=== PATIENT | male | born 1975 | race Caucasian/White ===

== ENCOUNTER 2019-11-18 09:40 | Emergency (ER) | payer BC ==
[2019-11-18] MEDS ORDERED: Ketorolac 30 MG/ML SDV IVPUSH ONE (10:09)
[2019-11-18] MEDS ORDERED: Sodium Chloride 0.9% 1,000 ML IV ONE (10:09)
[2019-11-18 10:29] LABS: ANION GAP 11.8 mEq/L (7-13); CHLORIDE,CL 105 mmol/L (98-107); SODIUM,NA 141 mmol/L (136-145)
--- NOTE | 2019-11-18 11:07 | CT ---
PROCEDURE INFORMATION: Exam: CT Abdomen And Pelvis Without Contrast Exam date and time: 11/18/2019 10:27 AM Age: 44 years old Clinical indication: Pain; Other: Left flank; Additional info: Left flank pain TECHNIQUE: Imaging protocol: Computed tomography of the abdomen and pelvis without contrast. Radiation optimization: All CT scans at this facility use at least one of these dose optimization techniques: automated exposure control; mA and/or kV adjustment per patient size (includes targeted exams where dose is matched to clinical indication); or iterative reconstruction. COMPARISON: No relevant prior studies available. FINDINGS: Limitations: Respiratory motion limits the examination. Lungs: There is minimal bibasilar atelectasis. Mediastinal space: There is a hiatal hernia. Liver: Normal. No mass. Gallbladder and bile ducts: Normal. No calcified stones. No ductal dilation. Pancreas: Normal. No ductal dilation. Spleen: Normal. No splenomegaly. Adrenals: Normal. No mass. Kidneys and ureters: 3 mm calculus in the proximal left ureter causing moderate hydronephrosis. Perinephric edema is present. Stomach and bowel: Unremarkable. No obstruction. No mucosal thickening. Appendix: Proximal appendix is enlarged measuring 9 mm and contains an appendicolith but no periappendiceal inflammation to suggest appendicitis. Intraperitoneal space: Unremarkable. No free air. No significant fluid collection. Vasculature: Unremarkable. No abdominal aortic aneurysm. Lymph nodes: Unremarkable. No enlarged lymph nodes. Bladder: Unremarkable as visualized. Reproductive: Unremarkable as visualized. Bones/joints: Unremarkable. No acute fracture. Soft tissues: Unremarkable. IMPRESSION: 3 mm calculus in the proximal left ureter causing moderate hydronephrosis. Perinephric edema is present.
[2019-11-18] MEDS ORDERED: Acetaminophen/HYDROcodone 325-5 MG Tab PO ONE (12:30)
--- NOTE | 2019-11-18 15:03 | EDM.PDOC ---
Scribed by Brandi Arias 11/18/19 1220 for Michael Byrne NP ED HPI GENERAL MEDICAL PROBLEM - General Chief Complaint: Flank Pain Stated Complaint: ? KIDNEY STONES Time Seen by Provider: 11/18/19 10:05 Source of Information: Reports: Patient, RN, RN Notes Reviewed History Limitations: Reports: No Limitations - History of Present Illness INITIAL COMMENTS - FREE TEXT/NARRATIVE: A 44-year-old who comes in with complaints of left flank pain x4 hours. Patient reports hematuria 2 days conservatively 2 days prior to flank pain. He states urine had been clear the day previously. He denies any injury, trauma or fall. No history of kidney disease. Drinks alcohol every other day. He states that he has decreased his intake over the last 2 years. Pain is rated as a 9/10 and it is constant. He reports inability to rest last night. He has not tried anything for symptoms. He denies any fevers, chills, urgency, frequency or dysuria. Onset: Today Duration: Getting Worse Location: Reports: Other (flank) Quality: Reports: Ache Severity: Severe Improves with: Reports: None Worsens with: Reports: None Associated Symptoms: Reports: No Other Symptoms Left Flank Pain Score (Numeric/FACES): 4 - Related Data Allergies Allergy/AdvReac Type Severity Reaction Status Date / Time No Known Allergies Allergy Verified 11/18/19 10:52 Home Meds: Home Meds . [No Known Home Meds] 11/18/19 [History] ED ROS GENERAL - Review of Systems Review Of Systems: Comprehensive ROS is negative, except as noted in HPI. ED EXAM, RENAL/ - Physical Exam Exam: See Below Exam Limited By: No Limitations General Appearance: Alert, WD/WN, Moderate Distress Respiratory/Chest: No Respiratory Distress, Lungs Clear, Normal Breath Sounds, No Accessory Muscle Use, Chest Non-Tender Cardiovascular: Normal Peripheral Pulses, Regular Rate, Rhythm, No Edema, No Gallop, No JVD, No Murmur, No Rub GI/Abdominal: Normal Bowel Sounds, Soft, Non-Tender, No Organomegaly, No Distention, No Abnormal Bruit, No Mass (Male) Exam: Deferred Rectal (Males) Exam: Deferred Back Exam: Normal Inspection, CVA Tenderness (L). No: CVA Tenderness (R) Neurological: Alert, Oriented, CN II-XII Intact, Normal Cognition, Normal Gait Psychiatric: Anxious Skin Exam: Warm Course - Vital Signs Last Recorded V/S: Last Vital Signs Temp 97.8 F 11/18/19 10:44 Pulse 102 H 11/18/19 10:44 Resp 16 11/18/19 10:44 BP 142/78 H 11/18/19 10:44 Pulse Ox 98 11/18/19 10:44 - Orders/Labs/Meds Labs: Laboratory Tests 11/18/19 11/18/19 11/18/19 Range/Units 10:03 10:03 10:11 WBC 15.3 H (5.0-10.0) 10^3/uL RBC 5.00 (4.6-6.2) 10^6/uL Hgb 15.4 (14.0-18.0) g/dL Hct 44.8 (40.0-54.0) % MCV 89.6 (80-100) fL MCH 30.8 (27.0-34.0) pg MCHC 34.4 (33.0-35.0) g/dL Plt Count 284 (150-450) 10^3/uL Neut % (Auto) 85.4 H (42.2-75.2) % Lymph % (Auto) 8.6 L (20.5-50.1) % Taylor % (Auto) 4.9 (2-8) % Eos % (Auto) 0.8 L (1.0-3.0) % Baso % (Auto) 0.3 (0.0-1.0) % Sodium 141 (136-145) mmol/L Potassium 3.8 (3.5-5.1) mmol/L Chloride 105 (98-107) mmol/L Carbon Dioxide 28 (21-32) mmol/L Anion Gap 11.8 (7-13) mEq/L BUN 12 (7-18) mg/dL Creatinine 1.11 (0.70-1.30) mg/dL Est Cr Clr Drug Dosing TNP Estimated GFR (MDRD) > 60 BUN/Creatinine Ratio 10.8 (No establ ref range) Glucose 127 H (74-99) mg/dL Calcium 8.0 L (8.5-10.1) mg/dL Total Bilirubin 0.5 (0.2-1.0) mg/dL AST 22 (15-37) U/L ALT 34 (16-63) U/L Alkaline Phosphatase 78 (46-116) U/L Total Protein 7.0 (6.4-8.2) g/dL Albumin 3.8 (3.4-5.0) g/dL Globulin 3.2 Albumin/Globulin Ratio 1.2 Urine Color Yellow (YELLOW) Urine Appearance Turbid (CLEAR) Urine pH 5.5 (5.0-9.0) Ur Specific [place] >= 1.030 (1.005-1.030) Urine Protein Negative (NEGATIVE) Urine Glucose (UA) Negative (NEGATIVE) Urine Ketones Negative (NEGATIVE) Urine Occult Blood Moderate H (NEGATIVE) Urine Nitrite Negative (NEGATIVE) Urine Bilirubin Negative (NEGATIVE) Urine Urobilinogen 0.2 (0.2-1.0) mg/dL Ur Leukocyte Esterase Negative (NEGATIVE) Urine RBC >100 H /HPF Urine WBC 0-5 (0-5/HPF) /HPF Ur Epithelial Cells Rare (NOT SEEN) /HPF Amorphous Sediment Rare (NOT SEEN) /HPF Urine Bacteria Rare (0-FEW/HPF) /HPF Urine Mucus Rare (NOT SEEN) /LPF Ethyl Alcohol < 3 (0) mg/dL Meds: Medications Discontinued Medications Generic Name Dose Route Start Last Admin Trade Name Freq PRN Reason Stop Dose Admin Hydrocodone Bitart/Acetaminophen 1 tab 11/18/19 12:30 11/18/19 12:35 Almo 325-5 Mg PO 11/18/19 12:31 1 tab ONETIME ONE Administration Sodium Chloride 1,000 mls @ 1,000 mls/hr 11/18/19 10:09 11/18/19 10:16 Normal Saline IV 11/18/19 11:08 1,000 mls/hr .BOLUS ONE Administration Ketorolac Tromethamine 30 mg 11/18/19 10:09 11/18/19 10:17 Toradol IVPUSH 11/18/19 10:10 30 mg ONETIME ONE Administration - Radiology Interpretation Free Text/Narrative:: CT abdomen and pelvis: 3mm calculus in the proximal left ureter causing moderate hydronephrosis. Perinephric edema is present. See rad report. - Re-Assessments/Exams Free Text/Narrative Re-Assessment/Exam: Patient present to the Er with complaints of left flank pain. Denies any history of kidney stones or symptoms of UA. Labs and Ct ordered and results reviewed with patient and mother. Toradol IM and IV fluids administered in the ER with pain relief. CT read( see RAD report). Encouraged him to push fluids. RX for Toradol send with patient. Follow up with PCP for Urology referral. Symptoms to return to the Er reviewed with patient. He verbalized understanding. Departure - Departure Time of Disposition: 12:20 Disposition: Home, Self-Care 01 Condition: Fair Clinical Impression: Kidney stone on left side - Discharge Information Instructions: Low-Purine Eating Plan, Kidney Stones, [id number], Dietary Guidelines to Help Prevent Kidney Stones Referrals: PCP,Not In Area [Primary Care Provider] - Forms: ED Department Discharge Additional Instructions: Encouraged him to push fluids. RX for Toradol send with patient. Follow up with PCP for Urology referral. Symptoms to return to the Er reviewed with patient. He verbalized understanding. Sepsis Event Note (ED) - Focused Exam Vital Signs: Vital Signs Temp Pulse Resp BP Pulse Ox 11/18/19 10:44 97.8 F 102 H 16 142/78 H 98 11/18/19 10:42 97.8 F 102 H 20 142/87 H 98 I have read and agree with the documentation that has been completed regarding this visit. By signing this record, I attest that the documentation was completed in my physical presence and is an accurate record of the encounter.
== END 2019-11-18 12:35 | disposition home or self-care (01) ==
LOC: DL.ED 09:40
DX: N13.2 Hydronephrosis with renal and ureteral calculous obstruction (principal)
CPT/HCPCS: 36415; 74176; 80053; 80307; 81001; 85025; 96374; 99284; A9270; J1885; J7030